=== PATIENT | male | born 1960 | race Caucasian/White ===

== ENCOUNTER 2020-06-14 18:00 | Inpatient (IN) | payer SELFPAY ==
[~2020-06-14 18:00] MED LIST: Fentanyl 100 MCG/2 ML VIAL ONE; Midazolam HCl 2 mg/2 ml Vial ONE; Ondansetron PF 4 MG/2 ML Vial ONE; PROPOFOL 200 MG/20 ML VIAL ONE
[2020-06-14] MEDS ORDERED: Acetaminophen 325 MG TAB PO PRN ×2 (18:03→22:45)
[2020-06-14] MEDS ORDERED: Ondansetron PF 4 MG/2 ML Vial SLOW IVP PRN (18:03)
[2020-06-14] MEDS ORDERED: traMADol HCl 50 MG TAB PO PRN (18:03)
[2020-06-14] MEDS ORDERED: Promethazine HCl 25 MG/ML VIAL IM PRN ×2 (18:03→20:02)
[2020-06-14] MEDS ORDERED: Meperidine HCl/PF 25 MG/ML VIAL IM PRN (18:06)
[2020-06-14] MEDS ORDERED: Lorazepam 2 MG/ML VIAL SLOW IVP PRN (18:10)
[2020-06-14] MEDS ORDERED: Pharmacy to Dose : VANC/ABX'S IVPB PRN (18:15)
[2020-06-14] MEDS ORDERED: TETANUS AND DIPHTHERIA TOX/PF 0.5 ML DISP.SYRIN IM SCH (18:15)
[2020-06-14] MEDS ORDERED: Tobramycin Sulfate 1.2 GM VIAL ONE (19:58)
[2020-06-14] MEDS ORDERED: Thrombin 5000 UNITS/5 ML VIAL ONE (20:00)
[2020-06-14] MEDS ORDERED: Ondansetron HCl/PF 4 MG/2 ML Vial IVP PRN (20:02)
[2020-06-14] MEDS ORDERED: Promethazine HCl 25 MG/ML VIAL SLOW IVP PRN (20:02)
[2020-06-14] MEDS ORDERED: Fentanyl 100 MCG/2 ML VIAL ONE (20:04)
[2020-06-14] MEDS ORDERED: Labetalol HCl 100 MG/20 ML VIAL ONE (20:22)
[2020-06-14] MEDS ORDERED: Vancomycin 1 GM in Premix Bag 1 BAG IVPB SCH (21:00)
[2020-06-14 21:32] VITALS: BMI 27.1
[2020-06-14] MEDS ORDERED: Labetalol HCl 100 MG/20 ML VIAL SLOW IVP PRN ×2 (21:35→22:08)
[2020-06-14] MEDS: Aspirin 81 mg Enteric Coated Tablet PO SCH (21:45)
[2020-06-14] MEDS: Famotidine/PF 20 mg/2ml Vial SLOW IVP SCH (21:45)
[2020-06-14] MEDS: HYDROcodone/Acetaminophen 5/325 mg Tablet PO PRN (21:45)
[2020-06-14] MEDS: Ketorolac Tromethamine 30 MG/ML VIAL IVP PRN (21:45)
[2020-06-14 22:01] LABS: ALT (SGPT) 32 U/L (8-55); AST (SGOT) 43 U/L (5-34); Albumin 3.2 g/dL (3.4-4.8); Alkaline Phosphatase 101 U/L (40-110); Bilirubin, Direct 1.1 mg/dL (0.1-0.3); Bilirubin, Total 1.9 mg/dL (0.2-1.2); Protein, Total 5.7 g/dL (5.8-8.1)
[2020-06-14] MEDS ORDERED: Dextrose 50% Abboject 50 ML SYRINGE SLOW IVP PRN (22:07)
[2020-06-14] MEDS ORDERED: Dextrose 5% in Water 1,000 ML IV PRN (22:07)
[2020-06-14] MEDS ORDERED: hydrALAZINE 20 MG/ML VIAL SLOW IVP PRN (22:08)
--- NOTE | 2020-06-14 22:08 | PDOC.HHP ---
Hospitalist HPI Finger abscess History of Present Illness: Patient is a 60 year old male with PMH HTN, DM who presents as transfer from [facility] for L finger abscess. Patient originally presented to PCP a few weeks ago after cat bit L hand, started on augmentin on 05/19, did not improve, became red and swollen, 4 days ago, discharge began from [address] [place] [address], patient presented to ED in [facility] today and hand surgeon here accepted patient Dr Coker, patient has history of HTN and DM, was previously on prinvil but has been lost to follow up and noncompliant, so essentially uncontrolled conditions. BPs so far with SBP in 160s, transferring facility labs significant for K 3.1, glucose 250, recieved vancomycin and cefepime there and transferred over here. here, patient had I&D of L hand today and admitted to floor, hospitalist service consulted for medical management. Allergies/Adverse Reactions: Allergy/AdvReac Type Severity Reaction Status Date / Time No Known Allergies Allergy Unverified 06/14/20 18:08 Comments: none Past History: PMHx: HTN, DM PSHx: no relevant surgical history FHx: no relevant family history Social: drinks 4 drinks/day, no hisotry of withdrawal physical symptoms, smokes 15 cigarettes a day Hospitalist HPI ROS Constitutional: reports: fever, chills. denies: sweats, weakness, malaise, other Eyes: denies: pain, vision change, conjunctivae inflammation, eyelid inflammation, redness, other ENT: denies: ear pain, ear discharge, nose pain, nose discharge, nose congestion, mouth pain, mouth swelling, throat pain, throat swelling, other Respiratory: denies: cough, dry, shortness of breath, hemoptysis, SOB with excertion, pleuritic pain, sputum, wheezing, other Cardiovascular: denies: chest pain, palpitations, orthopnea, paroxysmal noc. dyspnea, edema, light headedness, other Gastrointestinal: denies: nausea, vomiting, abdominal pain, diarrhea, constipation, melena, hematochezia, other Genitourinary: denies: dysuria, frequency, incontinence, hematuria, retention, other Musculoskeletal: reports: hand pain Skin: reports: rash, lesions Neurological: denies: weakness, numbness, incoordination, change in speech, confusion, seizures, other All other systems reviewed; all pertinent +/- noted in HPI/Subj Hospitalist Exam Vitals: Weight Weight 206 lb 2 oz 152/105 bp, pulse 89, rr 18, t 98.6, o2 sat 97 General Appearance: NAD, awake alert Eye: PERRL, anicteric sclera ENT: normocephalic atraumatic, no oropharyngeal lesions, moist mucosa Neck: supple, symmetric, no JVD, no thyromegaly, no lymphadenopathy, no carotid bruit Heart: RRR, no murmur, no gallops, no rubs, normal peripheral pulses Respiratory: CTAB, no wheezes, no rales, no ronchi, normal chest expansion, no tachypnea, normal percussion Gastrointestinal: soft, non-tender, non-distended, normal bowel sounds, no palpable masses, no hepatomegaly, no splenomegaly, no bruit Extremities - other findings: L hand surgical dressing, visible fingers pink and warm Skin: normal turgor, no lesions, no rashes Neurological: cranial nerve grossly intact, normal sensation to touch, no weakness, no focal deficits, no new deficit Musculoskeletal: normal tone, normal strength, no muscle wasting Psychiatric: normal affect, normal behavior, A&O x 3 Hospitalist Results Lab results: Laboratory Last Values Total Bilirubin 1.9 mg/dL (0.2-1.2) H 06/14/20 21:25 Direct Bilirubin 1.1 mg/dL (0.1-0.3) H 06/14/20 21:25 AST 43 U/L (5-34) H 06/14/20 21:25 ALT 32 U/L (8-55) 06/14/20 21:25 Alkaline Phosphatase 101 U/L (40-110) 06/14/20 21:25 Serum Total Protein 5.7 g/dL (5.8-8.1) L 06/14/20 21:25 Albumin 3.2 g/dL (3.4-4.8) L 06/14/20 21:25 Hospitalist H&P A/P Plan: Patient is a 60 year old male with PMH HTN, DM who presents as transfer from [facility] for L finger abscess. # L finger abscess - s/p I&D 06/[address] Coker - monitor on flood - consult vanc/unasyn - follow up blood/wound cultures - got tetanus booster # HTN - uncontrolled, noncompliant, does not see doctors - monitor on floor - PRN medications in place - start norvasc # DM - noncompliant, does not see doctor for this - SSI - A1C # hypokalemia - electrolyte replacement protocol, trend BMP # DVT ppx - per primary # GI ppx - pepcid full code
[2020-06-14] MEDS: Multivitamins, Adult 10 ML, Folic Acid 1 MG, Thiamine HCl 100 MG in Dextrose 5 %-0.45 %... IV SCH (22:15)
[2020-06-14] MEDS ORDERED: Electrolyte Replacement Protocol 1 EACH FS SCH (22:45)
[2020-06-14] MEDS ORDERED: Ondansetron PF 4 MG/2 ML Vial IVP PRN (22:45)
[2020-06-14] MEDS: Sodium Chloride 0.9% 1,000 ML IV SCH (23:21)
[2020-06-14] MEDS: Sodium Chloride 0.9% 100 ML IV SCH ×2 (23:58→23:59)
[2020-06-15] MEDS: Ampicillin/Sulbactam 3 GM in Sodium Chloride 0.9% 100 ML IVPB SCH ×4 (00:22→17:44)
[2020-06-15] MEDS: Vancomycin 1.5 GRAM/300 ML BAG 1.5 GM in Premix Bag 1 BAG IVPB SCH ×3 (00:36→16:19)
[2020-06-15] MEDS: HYDROcodone/Acetaminophen 5/325 mg Tablet PO PRN ×4 (05:32→21:14)
[2020-06-15 05:51] LABS: #Eosinphils 0.1 thou/uL (0.0-0.7); #Lymphocytes 1.7 thou/uL (1.20-3.40); #Monocytes 0.6 thou/uL (0.11-0.59); #Neutrophils 4.2 thou/uL (1.40-6.50); %Basophils 0.6 % (0.0-1.0); %Eosinophils 1.7 % (0.0-10.0); %Lymphocytes 26.1 % (21.0-51.0); %Monocytes 8.7 % (0.0-10.0); %Neutrophils 62.9 % (42.0-75.0); Hemoglobin 13.3 g/dL (14.0-18.0); Mean Corpuscular HGB CONC 34.9 g/dL (32.0-36.0); Mean Corpuscular Hemoglobin 36.3 pg (27.0-31.0); Mean Platelet Volume 8.9 fL (7.4-10.4); Platelet Count 139 thou/uL (130-400); Red Blood Cell (RBC) Count 3.68 mill/uL (4.70-6.10); White Blood Cell (WBC) Count 6.6 thou/uL (4.8-10.8)
[2020-06-15 06:12] LABS: ALT (SGPT) 28 U/L (8-55); AST (SGOT) 39 U/L (5-34); Albumin 2.9 g/dL (3.4-4.8); Alkaline Phosphatase 81 U/L (40-110); Anion Gap 12 mmol/L (10-20); BUN (Urea Nitrogen) 4 mg/dL (8.4-25.7); Bilirubin, Total 1.9 mg/dL (0.2-1.2); Calc. Creatinine Clearance 143 mL/min (70-130); Calcium 7.3 mg/dL (7.8-10.44); Carbon Dioxide 23 mmol/L (23-31); Chloride 103 mmol/L (98-107); Glucose 173 mg/dL (80-115); Magnesium 1.3 mg/dL (1.6-2.6); Potassium 3.1 mmol/L (3.5-5.1); Protein, Total 5.1 g/dL (5.8-8.1); Sodium 135 mmol/L (136-145)
[2020-06-15] MEDS: HumaLOG 300 UNITS/3 ML VIAL SC PRN ×3 (06:35→21:16)
--- NOTE | 2020-06-15 07:48 | OP ---
DATE OF PROCEDURE: 06/14/2020 PREOPERATIVE DIAGNOSES: 1. Left ring finger metacarpophalangeal joint abscess secondary to cat bite. 2. Tendon sheath abscess secondary to cat bite, left ring finger extensor. 3. Possible osteomyelitis of left ring finger metacarpal head. FINDINGS: 1. Left ring finger metacarpal head love 5 mm grossly infected osteomyelitis cavity, almost 4 mm deep, subchondral to the metacarpal head MCP joint. 2. Tendon sheath abscess. 3. Intra-articular ring finger, left metacarpophalangeal joint abscess. PROCEDURES PERFORMED: 1. Debridement of wound, which was a 3 mm cavity draining serosanguineous and mucopurulent material. 2. Debridement of material associated with the joint, left ring finger. 3. Left ring finger radical extensor tenosynovectomy. 4. Excision of bone cortex, left ring finger for gross osteomyelitis and mucopurulence. 5. Application of antibiotic beads, tobramycin powder. CULTURES: Yes, abscess x2 and then culture of the bone from the resection of the metacarpal head cavity and then finally specimen of the same bone, metacarpal head; all from the left ring finger. TOURNIQUET TIME: 18 minutes. ESTIMATED BLOOD LOSS: 20 mL. FINDINGS: Gross purulence at all sites with a total of approximately 1 tablespoon of purulence. Also after debridement, the metacarpal head cavity became 1 cm in length, approximately 8 mm in width, and approximately 5 mm in depth before we got to all bone without gross evidence of infection. INDICATIONS FOR PROCEDURE: Patient reports having a cat bite almost 2 months ago from his own home domestic cat. He reported progressive pain, swelling, inability to extend his finger and marked pain with attempt at passive extension and great drainage and mucopurulence despite antibiotics, reported to hospital today. DESCRIPTION OF PROCEDURE: After successful general LMA technique, the limb was prepped and draped. We then outlined a zigzag incision centered on what was a 3 mm puncture wound and obvious mucopurulence erythema over a 2.5 cm area beginning 5 mm distal to the metacarpophalangeal joint dorsally and then coursing almost 2 cm proximal. It was also in a rectangular shape, approximately 5 mm wide. We entered this incision, used an 11 blade knife to core out the actual area of the puncture wound and mucopurulence escaped. It was seen in all places. This included coating the bone, inside the joint where most of the joint dorsal capsule was gone. There was a bite wound through the extensor mechanism into the metacarpal head with gross purulence escaping from all sites. In order to resolve the purulence, we had to debride all the subcutaneous tissue widely with a tenotomy scissor, [place] blade, 11 blade knife, curette. This was done to debride the dermis and epidermis. To debride the deep next layer, we had to do a radical extensor tenosynovectomy and we saw through the extensor tendon, there was now complete defect and with debridement, it was approximately 3 mm wide. The patient then had the joint capsule which was almost completely gone, opened to the level of 1 cm distal to the base of the proximal phalanx and there was no soft bone at the base of proximal phalanx, but there was mucopurulence in the recess of the joint requiring debridement with a curette and tenotomy scissors. Once this was done, we then moved proximally and debrided the fat in the interspaces between the ring finger and the middle finger and ring finger and small finger metacarpals. There was mild purulence here. Once we had reached the area where it was only healthy tissue, we then finished our debridement and began irrigating two 3 L bags with normal saline inside, Pulsavac technique with antibiotics. Once this was done, we deflated the tourniquet and obtained hemostasis. We had saved cultures from the abscess cavity in the joint, then debrided abscess cavity, the half of the material from the bone cortex excision, and the other half of the bone cortex excision went to the pathology lab as specimen to rule out osteomyelitis from a clinical pathological standpoint. We initially considered using a white VAC sponge, but because of availability, had to use antibiotic beads with tobramycin powder inside standard cement without antibiotics, and we mixed the two powders together before we placed the liquid. 12 minutes later, we began to form them in 3 to 4 mm diameter antibiotic beads and we placed a separate bead of almost 8 mm x 6 mm in the defect created by the cavitation of the infection subcondylar metacarpal head. We obtained hemostasis. Tourniquet deflated before we began to make the antibiotic beads and then 20 minutes later, when they were hard and had been placed on a string, except for the one in the cavity, we them packed around the wound edges, wound centroid and then we had 16 beads on the string and one inside the cavitary lesion which was mobile. We placed a moist sponge x2 with normal saline-soaked gauze over the wound, dry 4x4s, ABD, and then we packed the web spaces in a bulky hand dressing type fashion. I then placed a palmar splint out to the level of the nailbed to support the ring finger, long, and middle. The patient left the operating room with a pink digit and no evidence of anesthetic or operative complication. Job ID: [id number]
[2020-06-15] MEDS ORDERED: Potassium Chloride 20 MEQ TAB PO SCH (08:15)
[2020-06-15] MEDS ORDERED: Magnesium Sulfate 4 GM in Sodium Chloride 0.9% 250 ML 250 ML IVPB SCH (08:15)
[2020-06-15] MEDS: Famotidine 20 MG TAB PO SCH ×2 (08:53→21:08)
[2020-06-15] MEDS: Aspirin 81 mg Enteric Coated Tablet PO SCH ×2 (08:53→21:08)
[2020-06-15] MEDS: Amlodipine 5 MG TAB PO SCH (08:54)
[2020-06-15] MEDS: Famotidine/PF 20 mg/2ml Vial SLOW IVP SCH ×2 (08:58→21:08)
[2020-06-15] MEDS: Sodium Chloride 0.9% 1,000 ML IV SCH ×2 (10:39→18:14)
--- NOTE | 2020-06-15 13:54 | PDOC.HOSPP ---
- Subjective Encounter Date: 06/15/20 Encounter Time: 13:49 Subjective: pain in L hand. no fever, chills - Objective Vital Signs & Weight: Vital Signs (12 hours) Temp Pulse Resp BP Pulse Ox 06/15/20 11:00 97.5 F L 80 16 133/83 95 06/15/20 08:54 71 06/15/20 07:25 97.5 F L 71 16 156/91 H 93 L 06/15/20 03:29 98 F 85 16 121/62 92 L Weight Weight 206 lb 2 oz I&O: 06/14/20 06/15/20 06/16/20 06:59 06:59 06:59 Intake Total 2315 Balance 2315 Result Diagrams: 06/15/20 05:17 06/15/20 05:17 Additional Labs: Accuchecks 06/15/20 06/15/20 11:05 03:34 POC Glucose 196 H 177 H Hospitalist ROS - Medication Medications: Active Medications Generic Name Dose Route Start Last Admin Trade Name Freq PRN Reason Stop Dose Admin Hydrocodone Bitart/Acetaminophen 2 tab 06/14/20 18:03 06/15/20 08:54 Hydrocodone/Acetaminophen 5/325 Mg Tablet PO 2 tab Q4H PRN Administration Severe Pain (7-10) Amlodipine Besylate 5 mg 06/15/20 09:00 06/15/20 08:54 Amlodipine 5 Mg Tab PO 5 mg DAILY MIGUELANGEL Administration Aspirin 81 mg 06/14/20 21:00 06/15/20 08:53 Aspirin 81 Mg Enteric Coated Tablet PO 81 mg BID MIGUELANGEL Administration Famotidine 20 mg 06/14/20 21:00 06/15/20 08:58 Famotidine/Pf 20 Mg/2ml Vial SLOW IVP 06/17/20 23:59 Not Given BID MIGUELANGEL Famotidine 20 mg 06/15/20 09:00 06/15/20 08:53 Famotidine 20 Mg Tab PO 20 mg BID MIGUELANGEL Administration Multivitamins 10 ml/ Folic 1,011.2 mls @ 100 mls/hr 06/14/20 20:00 06/14/20 22:15 Acid 1 mg/ Thiamine HCl 100 mg IV 06/17/20 23:59 1,011.2 mls / Dextrose/Sodium Chloride Q24HR MIGUELANGEL Administration Sodium Chloride 1,000 mls @ 100 mls/hr 06/14/20 21:30 06/15/20 10:39 Normal Saline 0.9% IV Not Given .Q10H MIGUELANGEL Ampicillin Sodium/Sulbactam 100 mls @ 200 mls/hr 06/14/20 23:59 06/15/20 11:21 Sodium 3 gm/ Sodium Chloride IVPB 100 mls Q6HR MIGUELANGEL Administration Vancomycin HCl 1.5 gm/ Device 300 mls @ 200 mls/hr 06/15/20 01:00 06/15/20 08:53 IVPB 06/17/20 23:59 300 mls 0100,0900,1700 MIGUELANGEL Administration Insulin Human Lispro 0 units 06/14/20 22:07 06/15/20 11:24 Humalog 300 Units/3 Ml Vial SC 2 unit .MODERATE SLIDING SC PRN Administration Moderate Correctional Scale Ketorolac Tromethamine 30 mg 06/14/20 18:06 06/14/20 21:45 Ketorolac Tromethamine 30 Mg/Ml Vial IVP 06/19/20 18:07 30 mg Q6H PRN Administration Pain Hospitalist Exam Vitals: Vital Signs (12 hours) Temp Pulse Resp BP Pulse Ox 06/15/20 11:00 97.5 F L 80 16 133/83 95 06/15/20 08:54 71 06/15/20 07:25 97.5 F L 71 16 156/91 H 93 L 06/15/20 03:29 98 F 85 16 121/62 92 L Weight Weight 206 lb 2 oz General Appearance: awake alert Neck: no JVD Heart: RRR, no murmur Respiratory: CTAB Gastrointestinal: soft, non-distended, normal bowel sounds Extremities: no edema Extremities - other findings: left hand in bulky bandage Hosp A/P (1) Cellulitis and abscess of hand Code(s): L03.119 - CELLULITIS OF UNSPECIFIED PART OF LIMB; L02.519 - CUTANEOUS ABSCESS OF UNSPECIFIED HAND Status: Acute (2) Osteomyelitis Code(s): M86.9 - OSTEOMYELITIS, UNSPECIFIED Status: Acute Qualifiers: Osteomyelitis type: unspecified type Osteomyelitis location: hand Laterality: left Qualified Code(s): M86.9 - Osteomyelitis, unspecified (3) Cat bite of hand Code(s): S61.459A - OPEN BITE OF UNSPECIFIED HAND, INITIAL ENCOUNTER; W55.01XA - BITTEN BY CAT, INITIAL ENCOUNTER Status: Chronic Qualifiers: Encounter type: initial encounter Laterality: left Qualified Code(s): S61.452A - Open bite of left hand, initial encounter; W55.01XA - Bitten by cat, initial encounter - Plan post op I&D, bone resection for possible osteomyelitis cont wound care await culture reports cont current iv anagesic cint iv antibx
[2020-06-15] MEDS: Morphine 4 MG/ML VIAL SLOW IVP PRN (17:44)
[2020-06-15] MEDS: Multivitamins, Adult 10 ML, Folic Acid 1 MG, Thiamine HCl 100 MG in Dextrose 5 %-0.45 %... IV SCH (21:23)
[2020-06-16] MEDS: Ampicillin/Sulbactam 3 GM in Sodium Chloride 0.9% 100 ML IVPB SCH ×5 (00:19→23:50)
[2020-06-16 01:15] LABS: Vancomycin, Trough 15.1 ug/mL
[2020-06-16] MEDS: Vancomycin 1.5 GRAM/300 ML BAG 1.5 GM in Premix Bag 1 BAG IVPB SCH ×3 (01:41→18:19)
[2020-06-16] MEDS: Sodium Chloride 0.9% 1,000 ML IV SCH ×2 (04:02→14:57)
[2020-06-16] MEDS: Ketorolac Tromethamine 30 MG/ML VIAL IVP PRN (04:11)
[2020-06-16] MEDS ORDERED: Magnesium 2 GM/50 ML 2 GM in Premix Bag 1 BAG IVPB SCH (04:30)
[2020-06-16] MEDS ORDERED: Potassium Chloride 20 MEQ TAB PO SCH (04:30)
[2020-06-16] MEDS: HYDROcodone/Acetaminophen 5/325 mg Tablet PO PRN ×3 (05:31→20:04)
[2020-06-16] MEDS: HumaLOG 300 UNITS/3 ML VIAL SC PRN ×2 (06:01→20:54)
[2020-06-16] MEDS: Famotidine 20 MG TAB PO SCH ×2 (08:45→20:07)
[2020-06-16] MEDS: Amlodipine 5 MG TAB PO SCH (08:46)
[2020-06-16] MEDS: Morphine 4 MG/ML VIAL SLOW IVP PRN (08:46)
[2020-06-16] MEDS: Aspirin 81 mg Enteric Coated Tablet PO SCH ×2 (08:46→20:07)
[2020-06-16] MEDS: Famotidine/PF 20 mg/2ml Vial SLOW IVP SCH ×2 (09:59→21:00)
--- NOTE | 2020-06-16 16:46 | PDOC.HOSPP ---
- Subjective Encounter Date: 06/16/20 Encounter Time: 16:44 Subjective: Patient seen and evaluated. 60-year-old who was admitted to the hospital following a cat bite to his left hand. This unfortunately appears to have became severely infected now causing osteomyelitis. He underwent operative intervention. He is currently on IV antibiotics. Cultures however has remained negative to date. He likely is going to need long-term antibiotics and I will check with the primary admitting service. - Objective Vital Signs & Weight: Vital Signs (12 hours) Temp Pulse Resp BP Pulse Ox 06/16/20 15:57 97.6 F 72 18 168/88 H 98 06/16/20 11:10 97.5 F L 72 18 143/78 H 98 06/16/20 08:46 74 06/16/20 08:03 97.7 F 66 18 154/87 H 90 L Weight Admit Weight 206 lb 2 oz Weight 206 lb 2 oz I&O: 06/15/20 06/16/20 06/17/20 06:59 06:59 06:59 Intake Total 2315 2400 Output Total 1000 Balance 2315 1400 Result Diagrams: 06/17/20 04:41 06/17/20 06:29 Additional Labs: Accuchecks 06/16/20 06/16/20 06/16/20 16:00 11:12 05:58 POC Glucose 162 H 184 H 182 H 06/15/20 21:03 POC Glucose 174 H Radiology Reviewed by me: Yes EKG Reviewed by me: Yes Hospitalist ROS - Review of Systems Gastrointestinal: reports: nausea, vomiting - Medication Medications: Active Medications Generic Name Dose Route Start Last Admin Trade Name Freq PRN Reason Stop Dose Admin Hydrocodone Bitart/Acetaminophen 2 tab 06/14/20 18:03 06/16/20 13:03 Hydrocodone/Acetaminophen 5/325 Mg Tablet PO 2 tab Q4H PRN Administration Severe Pain (7-10) Amlodipine Besylate 5 mg 06/15/20 09:00 06/16/20 08:46 Amlodipine 5 Mg Tab PO 5 mg DAILY MIGUELANGEL Administration Aspirin 81 mg 06/14/20 21:00 06/16/20 08:46 Aspirin 81 Mg Enteric Coated Tablet PO 81 mg BID MIGUELANGEL Administration Famotidine 20 mg 06/14/20 21:00 06/16/20 09:59 Famotidine/Pf 20 Mg/2ml Vial SLOW IVP 06/17/20 23:59 Not Given BID MIGUELANGEL Famotidine 20 mg 06/15/20 09:00 06/16/20 08:45 Famotidine 20 Mg Tab PO 20 mg BID MIGUELANGEL Administration Multivitamins 10 ml/ Folic 1,011.2 mls @ 100 mls/hr 06/14/20 20:00 06/15/20 21:23 Acid 1 mg/ Thiamine HCl 100 mg IV 06/17/20 23:59 1,011.2 mls / Dextrose/Sodium Chloride Q24HR MIGUELANGEL Administration Sodium Chloride 1,000 mls @ 100 mls/hr 06/14/20 21:30 06/16/20 14:57 Normal Saline 0.9% IV Not Given .Q10H MIGUELANGEL Ampicillin Sodium/Sulbactam 100 mls @ 200 mls/hr 06/14/20 23:59 06/16/20 13:03 Sodium 3 gm/ Sodium Chloride IVPB 100 mls Q6HR MIGUELANGEL Administration Vancomycin HCl 1.5 gm/ Device 300 mls @ 200 mls/hr 06/15/20 01:00 06/16/20 08:47 IVPB 06/17/20 23:59 300 mls 0100,0900,1700 MIGUELANGEL Administration Insulin Human Lispro 0 units 06/14/20 22:07 06/16/20 06:01 Humalog 300 Units/3 Ml Vial SC 2 unit .MODERATE SLIDING SC PRN Administration Moderate Correctional Scale Ketorolac Tromethamine 30 mg 06/14/20 18:06 06/16/20 04:11 Ketorolac Tromethamine 30 Mg/Ml Vial IVP 06/19/20 18:07 30 mg Q6H PRN Administration Pain Morphine Sulfate 4 mg 06/14/20 18:03 06/16/20 08:46 Morphine 4 Mg/Ml Vial SLOW IVP 4 mg Q2H PRN Administration Severe Pain (7-10) Hospitalist Exam Vitals: Vital Signs (12 hours) Temp Pulse Resp BP Pulse Ox 06/16/20 15:57 97.6 F 72 18 168/88 H 98 06/16/20 11:10 97.5 F L 72 18 143/78 H 98 06/16/20 08:46 74 06/16/20 08:03 97.7 F 66 18 154/87 H 90 L Weight Admit Weight 206 lb 2 oz Weight 206 lb 2 oz General Appearance: NAD, awake alert Eye: PERRL, anicteric sclera ENT: normocephalic atraumatic, no oropharyngeal lesions Neck: supple, symmetric, no JVD Heart: RRR, no murmur, no gallops, no rubs Gastrointestinal: soft, non-tender, non-distended, normal bowel sounds Neurological: cranial nerve grossly intact, normal sensation to touch Psychiatric: normal affect, normal behavior, A&O x 3 Hosp A/P (1) Cellulitis and abscess of hand Code(s): L03.119 - CELLULITIS OF UNSPECIFIED PART OF LIMB; L02.519 - CUTANEOUS ABSCESS OF UNSPECIFIED HAND Status: Acute Plan: Patient is status post operative debridement. (2) Osteomyelitis Code(s): M86.9 - OSTEOMYELITIS, UNSPECIFIED Status: Acute Qualifiers: Osteomyelitis type: unspecified type Osteomyelitis location: hand Laterality: left Qualified Code(s): M86.9 - Osteomyelitis, unspecified Plan: Status post debridement. Continue antibiotics. (3) Cat bite of hand Code(s): S61.459A - OPEN BITE OF UNSPECIFIED HAND, INITIAL ENCOUNTER; W55.01XA - BITTEN BY CAT, INITIAL ENCOUNTER Status: Chronic Qualifiers: Encounter type: initial encounter Laterality: left Qualified Code(s): S61.452A - Open bite of left hand, initial encounter; W55.01XA - Bitten by cat, initial encounter (4) Diabetes type 2, uncontrolled Code(s): E11.65 - TYPE 2 DIABETES MELLITUS WITH HYPERGLYCEMIA Status: Acute Qualifiers: Glycemic state: with hyperglycemia Qualified Code(s): E11.65 - Type 2 diabetes mellitus with hyperglycemia - Plan old records reviewed/req, PT/OT, incentive spirometry, out of bed/ambulate We will discuss with the primary service about getting ID on board. I suspect he is going to need long-term antibiotics for this osteomyelitis.
[2020-06-16] MEDS: Multivitamins, Adult 10 ML, Folic Acid 1 MG, Thiamine HCl 100 MG in Dextrose 5 %-0.45 %... IV SCH (20:08)
[2020-06-17] MEDS: Vancomycin 1.5 GRAM/300 ML BAG 1.5 GM in Premix Bag 1 BAG IVPB SCH ×3 (00:50→18:01)
[2020-06-17] MEDS: Sodium Chloride 0.9% 1,000 ML IV SCH ×3 (01:03→22:21)
[2020-06-17 05:20] LABS: #Basophils 0.1 thou/uL (0.0-0.2); #Eosinphils 0.1 thou/uL (0.0-0.7); #Lymphocytes 1.9 thou/uL (1.20-3.40); #Monocytes 0.7 thou/uL (0.11-0.59); #Neutrophils 5.1 thou/uL (1.40-6.50); %Eosinophils 1.2 % (0.0-10.0); %Lymphocytes 24.7 % (21.0-51.0); %Monocytes 8.3 % (0.0-10.0); %Neutrophils 64.8 % (42.0-75.0); Hemoglobin 15.7 g/dL (14.0-18.0); Mean Corpuscular HGB CONC 33.4 g/dL (32.0-36.0); Mean Corpuscular Hemoglobin 34.9 pg (27.0-31.0); Mean Platelet Volume 8.7 fL (7.4-10.4); Platelet Count 167 thou/uL (130-400); RBC Distribution Width 12.1 % (11.5-14.5); White Blood Cell (WBC) Count 7.9 thou/uL (4.8-10.8)
[2020-06-17] MEDS: Ketorolac Tromethamine 30 MG/ML VIAL IVP PRN ×2 (06:26→11:15)
[2020-06-17] MEDS: Ampicillin/Sulbactam 3 GM in Sodium Chloride 0.9% 100 ML IVPB SCH ×3 (06:32→18:02)
[2020-06-17 07:00] LABS: Chloride 103 mmol/L (98-107); Potassium 3.3 mmol/L (3.5-5.1); Sodium 133 mmol/L (136-145)
[2020-06-17 07:01] LABS: Calcium 8.3 mg/dL (7.8-10.44); Glucose 159 mg/dL (80-115)
[2020-06-17 07:03] LABS: Anion Gap 14 mmol/L (10-20); Carbon Dioxide 19 mmol/L (23-31)
[2020-06-17 07:05] LABS: Calc. Creatinine Clearance 158 mL/min (70-130)
[2020-06-17 07:06] LABS: BUN (Urea Nitrogen) 4 mg/dL (8.4-25.7)
[2020-06-17] MEDS ORDERED: Potassium Chloride 20 MEQ TAB PO SCH (07:15)
[2020-06-17] MEDS: Aspirin 81 mg Enteric Coated Tablet PO SCH ×2 (08:09→21:48)
[2020-06-17] MEDS: Famotidine 20 MG TAB PO SCH ×2 (08:09→21:48)
[2020-06-17 08:13] LABS: Vancomycin, Trough 18.6 ug/mL
[2020-06-17] MEDS: Famotidine/PF 20 mg/2ml Vial SLOW IVP SCH ×2 (08:19→22:22)
[2020-06-17] MEDS: Amlodipine 5 MG TAB PO SCH (08:19)
[2020-06-17] MEDS: HYDROcodone/Acetaminophen 5/325 mg Tablet PO PRN (11:15)
[2020-06-17] MEDS ORDERED: Ondansetron PF 4 MG/2 ML Vial ONE (13:54)
[2020-06-17] MEDS ORDERED: PROPOFOL 200 MG/20 ML VIAL ONE (13:54)
[2020-06-17] MEDS ORDERED: Dexamethasone 20 MG/5 ML VIAL ONE (13:54)
[2020-06-17] MEDS ORDERED: Ketorolac Tromethamine 30 MG/ML VIAL ONE (13:54)
[2020-06-17] MEDS ORDERED: Lidocaine 1% PF 5 ML VIAL ONE (13:54)
[2020-06-17] MEDS ORDERED: ePHEDrine 50 MG/ML VIAL ONE (13:54)
--- NOTE | 2020-06-17 15:20 | PDOC.HOSPP ---
- Subjective Encounter Date: 06/17/20 Encounter Time: 15:18 Subjective: Mr Cage is seen and examined at bedside. He has osteomyelitis of the left hand.Did extensive I and D. Will likely need prison antibiotics. - Objective Vital Signs & Weight: Vital Signs (12 hours) Temp Pulse Resp BP BP Pulse Ox 06/17/20 11:38 97.4 F L 74 16 162/92 H 97 06/17/20 08:31 97.8 F 72 16 188/105 H 98 06/17/20 05:06 166/96 H 06/17/20 04:28 64 185/98 H 06/17/20 03:54 98.1 F 64 18 185/98 H 97 Weight Admit Weight 206 lb 2 oz Weight 206 lb 2 oz I&O: 06/16/20 06/17/20 06/18/20 06:59 06:59 06:59 Intake Total 2400 1000 Output Total 1000 Balance 1400 1000 Result Diagrams: 06/17/20 04:41 06/17/20 06:29 Additional Labs: Accuchecks 06/17/20 06/16/20 06/16/20 06:47 20:43 16:00 POC Glucose 149 H 153 H 162 H Radiology Reviewed by me: Yes EKG Reviewed by me: Yes Hospitalist ROS - Review of Systems Skin: reports: rash Neurological: reports: weakness - Medication Medications: Active Medications Generic Name Dose Route Start Last Admin Trade Name Freq PRN Reason Stop Dose Admin Hydrocodone Bitart/Acetaminophen 2 tab 06/14/20 18:03 06/17/20 11:15 Hydrocodone/Acetaminophen 5/325 Mg Tablet PO 2 tab Q4H PRN Administration Severe Pain (7-10) Amlodipine Besylate 5 mg 06/15/20 09:00 06/17/20 08:19 Amlodipine 5 Mg Tab PO 5 mg DAILY MIGUELANGEL Administration Aspirin 81 mg 06/14/20 21:00 06/17/20 08:09 Aspirin 81 Mg Enteric Coated Tablet PO Not Given BID MIGUELANGEL Famotidine 20 mg 06/14/20 21:00 06/17/20 08:19 Famotidine/Pf 20 Mg/2ml Vial SLOW IVP 06/17/20 23:59 20 mg BID MIGUELANGEL Administration Famotidine 20 mg 06/15/20 09:00 06/17/20 08:09 Famotidine 20 Mg Tab PO Not Given BID MIGUELANGEL Hydralazine HCl 10 mg 06/14/20 22:08 06/17/20 04:28 Hydralazine 20 Mg/Ml Vial SLOW IVP 10 mg Q6H PRN Administration SBP GREATER THAN 160 Multivitamins 10 ml/ Folic 1,011.2 mls @ 100 mls/hr 06/14/20 20:00 06/16/20 20:08 Acid 1 mg/ Thiamine HCl 100 mg IV 06/17/20 23:59 1,011.2 mls / Dextrose/Sodium Chloride Q24HR MIGUELANGEL Administration Sodium Chloride 1,000 mls @ 100 mls/hr 06/14/20 21:30 06/17/20 08:24 Normal Saline 0.9% IV 1,000 mls .Q10H MIGUELANGEL Administration Ampicillin Sodium/Sulbactam 100 mls @ 200 mls/hr 06/14/20 23:59 06/17/20 11:16 Sodium 3 gm/ Sodium Chloride IVPB 100 mls Q6HR MIGUELANGEL Administration Vancomycin HCl 1.5 gm/ Device 300 mls @ 200 mls/hr 06/15/20 01:00 06/17/20 08:19 IVPB 06/17/20 23:59 300 mls 0100,0900,1700 MIGUELANGEL Administration Insulin Human Lispro 0 units 06/14/20 22:07 06/16/20 20:54 Humalog 300 Units/3 Ml Vial SC 2 unit .MODERATE SLIDING SC PRN Administration Moderate Correctional Scale Ketorolac Tromethamine 30 mg 06/14/20 18:06 06/17/20 11:15 Ketorolac Tromethamine 30 Mg/Ml Vial IVP 06/19/20 18:07 30 mg Q6H PRN Administration Pain Morphine Sulfate 4 mg 06/14/20 18:03 06/16/20 08:46 Morphine 4 Mg/Ml Vial SLOW IVP 4 mg Q2H PRN Administration Severe Pain (7-10) Hospitalist Exam Vitals: Vital Signs (12 hours) Temp Pulse Resp BP BP Pulse Ox 06/17/20 11:38 97.4 F L 74 16 162/92 H 97 06/17/20 08:31 97.8 F 72 16 188/105 H 98 06/17/20 05:06 166/96 H 06/17/20 04:28 64 185/98 H 06/17/20 03:54 98.1 F 64 18 185/98 H 97 Weight Admit Weight 206 lb 2 oz Weight 206 lb 2 oz General Appearance: NAD Eye: PERRL ENT: normocephalic atraumatic, no oropharyngeal lesions Neck: supple, symmetric, no JVD Heart: RRR, no murmur Respiratory: CTAB, no wheezes, no rales Gastrointestinal: soft, non-tender Neurological: cranial nerve grossly intact Psychiatric: normal affect Hosp A/P (1) Cellulitis and abscess of hand Code(s): L03.119 - CELLULITIS OF UNSPECIFIED PART OF LIMB; L02.519 - CUTANEOUS ABSCESS OF UNSPECIFIED HAND Status: Acute (2) Osteomyelitis Code(s): M86.9 - OSTEOMYELITIS, UNSPECIFIED Status: Acute Qualifiers: Osteomyelitis type: unspecified type Osteomyelitis location: hand Laterality: left Qualified Code(s): M86.9 - Osteomyelitis, unspecified (3) Cat bite of hand Code(s): S61.459A - OPEN BITE OF UNSPECIFIED HAND, INITIAL ENCOUNTER; W55.01XA - BITTEN BY CAT, INITIAL ENCOUNTER Status: Chronic Qualifiers: Encounter type: initial encounter Laterality: left Qualified Code(s): S61.452A - Open bite of left hand, initial encounter; W55.01XA - Bitten by cat, initial encounter (4) Diabetes type 2, uncontrolled Code(s): E11.65 - TYPE 2 DIABETES MELLITUS WITH HYPERGLYCEMIA Status: Acute Qualifiers: Glycemic state: with hyperglycemia Qualified Code(s): E11.65 - Type 2 diabetes mellitus with hyperglycemia - Plan old records reviewed/req We will discuss with the primary service about getting ID on board. I suspect he is going to need long-term antibiotics for this osteomyelitis.
[2020-06-17] MEDS ORDERED: Dexmedetomidine 200 MCG/2 ML VIAL ONE (16:03)
[2020-06-17] MEDS ORDERED: HYDROmorphone 0.5 MG/0.5 ML SYRINGE ONE (18:02)
[2020-06-17] MEDS ORDERED: Sodium Chloride 0.9% 10 ML ONE (18:12)
[2020-06-17] MEDS ORDERED: Bacitracin Zinc Ointment 30 gm TUBE ONE (18:12)
[2020-06-17] MEDS ORDERED: Bupivacaine PF 0.5% 30 ML VIAL ONE (18:12)
[2020-06-17] MEDS ORDERED: Tobramycin Sulfate 1.2 GM VIAL ONE (18:12)
[2020-06-17] MEDS ORDERED: Betamet Acet/Betamet Na Ph 30 MG/5 ML VIAL ONE (18:12)
[2020-06-17] MEDS ORDERED: Promethazine HCl 25 MG/ML VIAL IM PRN (20:08)
[2020-06-17] MEDS ORDERED: Promethazine HCl 25 MG/ML VIAL SLOW IVP PRN (20:08)
[2020-06-17] MEDS ORDERED: Ondansetron HCl/PF 4 MG/2 ML Vial IVP PRN (20:08)
[2020-06-17] MEDS ORDERED: Lorazepam 2 MG/ML VIAL SLOW IVP PRN (23:28)
[2020-06-17] MEDS ORDERED: Lorazepam 2 MG/ML VIAL SLOW IVP SCH ×2 (23:30→23:45)
[2020-06-17] MEDS ORDERED: Thiamine HCl 200 MG/2 ML VIAL IM SCH (23:45)
[2020-06-17] MEDS: Multivitamins, Adult 10 ML, Folic Acid 1 MG, Thiamine HCl 100 MG in Dextrose 5 %-0.45 %... IV SCH (23:45)
[2020-06-18] MEDS: Nicotine 14 MG PATCH TD SCH (00:02)
[2020-06-18] MEDS: HumaLOG 300 UNITS/3 ML VIAL SC PRN ×3 (05:50→17:22)
[2020-06-18] MEDS: Ampicillin/Sulbactam 3 GM in Sodium Chloride 0.9% 100 ML IVPB SCH ×5 (06:48→22:53)
[2020-06-18] MEDS: Sodium Chloride 0.9% 1,000 ML IV SCH ×2 (07:32→16:13)
[2020-06-18] MEDS: Aspirin 81 mg Enteric Coated Tablet PO SCH ×2 (08:34→20:33)
[2020-06-18] MEDS: Famotidine 20 MG TAB PO SCH ×2 (08:34→20:33)
[2020-06-18] MEDS: Folic Acid 1 MG TAB PO SCH (08:34)
[2020-06-18] MEDS: Thiamine 100 MG TAB PO SCH (08:34)
[2020-06-18] MEDS: Multivitamin W/ Minerals 1 TAB PO SCH (08:34)
[2020-06-18] MEDS: Magnesium Oxide 400 MG TAB PO SCH (08:34)
[2020-06-18] MEDS: Amlodipine 5 MG TAB PO SCH (08:34)
--- NOTE | 2020-06-18 15:30 | PDOC.HOSPP ---
- Subjective Encounter Date: 06/18/20 Encounter Time: 15:28 Subjective: Patient was seen today at the bedside.. He has no other issues at this time. Medicine service continues to be available if needed. - Objective Vital Signs & Weight: Vital Signs (12 hours) Temp Pulse Resp BP Pulse Ox 06/18/20 11:34 98.4 F 106 H 18 186/100 H 97 06/18/20 07:39 97.7 F 125 H 18 132/84 97 Weight Admit Weight 206 lb 2 oz Weight 206 lb 2 oz I&O: 06/17/20 06/18/20 06/19/20 06:59 06:59 06:59 Intake Total 1000 1600 Balance 1000 1600 Result Diagrams: 06/17/20 04:41 06/17/20 06:29 Additional Labs: Accuchecks 06/18/20 06/18/20 06/17/20 11:36 05:44 21:49 POC Glucose 203 H 268 H 140 H 06/17/20 17:48 POC Glucose 98 Radiology Reviewed by me: Yes EKG Reviewed by me: Yes Hospitalist ROS - Review of Systems Gastrointestinal: reports: nausea - Medication Medications: Active Medications Generic Name Dose Route Start Last Admin Trade Name Freq PRN Reason Stop Dose Admin Hydrocodone Bitart/Acetaminophen 2 tab 06/14/20 18:03 06/17/20 11:15 Hydrocodone/Acetaminophen 5/325 Mg Tablet PO 2 tab Q4H PRN Administration Severe Pain (7-10) Amlodipine Besylate 5 mg 06/15/20 09:00 06/18/20 08:34 Amlodipine 5 Mg Tab PO 5 mg DAILY [facility]IGUELANGEL Administration Aspirin 81 mg 06/14/20 21:00 06/18/20 08:34 Aspirin 81 Mg Enteric Coated Tablet PO 81 mg BID MIGUELANGEL Administration Famotidine 20 mg 06/15/20 09:00 06/18/20 08:34 Famotidine 20 Mg Tab PO 20 mg BID MIGUELANGEL Administration Folic Acid 1 mg 06/18/20 09:00 06/18/20 08:34 Folic Acid 1 Mg Tab PO 1 mg DAILY [facility] Administration Hydralazine HCl 10 mg 06/14/20 22:08 06/17/20 04:28 Hydralazine 20 Mg/Ml Vial SLOW IVP 10 mg Q6H PRN Administration SBP GREATER THAN 160 Sodium Chloride 1,000 mls @ 100 mls/hr 06/14/20 21:30 06/18/20 07:32 Normal Saline 0.9% IV Not Given .Q10H [facility]IGUELANGEL Ampicillin Sodium/Sulbactam 100 mls @ 200 mls/hr 06/14/20 23:59 06/18/20 06:48 Sodium 3 gm/ Sodium Chloride IVPB 100 mls Q6HR [facility]IGUELANGEL Administration Insulin Human Lispro 0 units 06/14/20 22:07 06/18/20 12:03 Humalog 300 Units/3 Ml Vial SC 4 unit .MODERATE SLIDING SC PRN Administration Moderate Correctional Scale Iron/Minerals/Multivitamins 1 tab 06/18/20 09:00 06/18/20 08:34 Multivitamin W/ Minerals 1 Tab PO 1 tab DAILY [facility] Administration Ketorolac Tromethamine 30 mg 06/14/20 18:06 06/17/20 11:15 Ketorolac Tromethamine 30 Mg/Ml Vial IVP 06/19/20 18:07 30 mg Q6H PRN Administration Pain Lorazepam 1 mg 06/14/20 18:10 06/17/20 23:03 Lorazepam 2 Mg/Ml Vial SLOW IVP 1 mg Q6H PRN Administration Anxiety/Agitation Magnesium Oxide 400 mg 06/18/20 09:00 06/18/20 08:34 Magnesium Oxide 400 Mg Tab PO 400 mg DAILY [facility] Administration Morphine Sulfate 4 mg 06/14/20 18:03 06/16/20 08:46 Morphine 4 Mg/Ml Vial SLOW IVP 4 mg Q2H PRN Administration Severe Pain (7-10) Nicotine 14 mg 06/17/20 23:59 06/18/20 00:02 Nicotine 14 Mg Patch TD 14 mg 2359 [facility] Administration Thiamine HCl 100 mg 06/18/20 09:00 06/18/20 08:34 Thiamine 100 Mg Tab PO 100 mg DAILY [facility] Administration Hospitalist Exam Vitals: Vital Signs (12 hours) Temp Pulse Resp BP Pulse Ox 06/18/20 11:34 98.4 F 106 H 18 186/100 H 97 06/18/20 07:39 97.7 F 125 H 18 132/84 97 Weight Admit Weight 206 lb 2 oz Weight 206 lb 2 oz General Appearance: NAD, awake alert Eye: PERRL, anicteric sclera ENT: normocephalic atraumatic, no oropharyngeal lesions Neck: supple, symmetric, no JVD, no thyromegaly Heart: RRR, no murmur, no gallops Respiratory: CTAB, no wheezes, no rales Gastrointestinal: soft, non-tender, non-distended, normal bowel sounds Neurological: cranial nerve grossly intact, normal sensation to touch Psychiatric: normal affect, normal behavior, A&O x 3 Hosp A/P (1) Cellulitis and abscess of hand Code(s): L03.119 - CELLULITIS OF UNSPECIFIED PART OF LIMB; L02.519 - CUTANEOUS ABSCESS OF UNSPECIFIED HAND Status: Acute (2) Osteomyelitis Code(s): M86.9 - OSTEOMYELITIS, UNSPECIFIED Status: Acute Qualifiers: Osteomyelitis type: unspecified type Osteomyelitis location: hand Laterality: left Qualified Code(s): M86.9 - Osteomyelitis, unspecified (3) Cat bite of hand Code(s): S61.459A - OPEN BITE OF UNSPECIFIED HAND, INITIAL ENCOUNTER; W55.01XA - BITTEN BY CAT, INITIAL ENCOUNTER Status: Chronic Qualifiers: Encounter type: initial encounter Laterality: left Qualified Code(s): S61.452A - Open bite of left hand, initial encounter; W55.01XA - Bitten by cat, initial encounter (4) Diabetes type 2, uncontrolled Code(s): E11.65 - TYPE 2 DIABETES MELLITUS WITH HYPERGLYCEMIA Status: Acute Qualifiers: Glycemic state: with hyperglycemia Qualified Code(s): E11.65 - Type 2 diabetes mellitus with hyperglycemia - Plan We will discuss with the primary service about getting ID on board. I suspect he is going to need long-term antibiotics for this osteomyelitis. 06/18/2020. The patient is on Unasyn and vancomycin. This will be continued for now.
--- NOTE | 2020-06-18 17:29 | OP ---
DATE OF PROCEDURE: 06/17/2020 PREOPERATIVE DIAGNOSES: Left ring finger open wound 7 cm with extensor tendon laceration and bone defect; ring finger metacarpal head bone defect; tendon injury, small finger and ring finger. POSTOPERATIVE DIAGNOSES: Left ring finger open wound 7 cm with extensor tendon laceration and bone defect; ring finger metacarpal head bone defect; tendon injury, small finger and ring finger. PROCEDURES PERFORMED: 1. Removal of antibiotic beads with application of dissolvable antibiotic beads with tobramycin powder inside. 2. Debridement of subchondral bone, metacarpal head, ring finger. 3. Debridement of wound. 4. Repair of extensor tendon ring finger. 5. Repair of extensor tendon small finger. 6. 7 cm wound closure, multiple layers. INJECTABLE: 30 mL, 0.5% Marcaine. TOURNIQUET TIME: None. BLOOD LOSS: 10 mL. FINDINGS: No gross infection of skin, tendon, bone, or joint. INDICATIONS: Patient returned for now staged wound management after having a more than 6-week-old cat bite abscess with bone involvement osteomyelitis grossly. At this point, 2-1/2 days after the initial surgery, no cultures have grown any bacteria. He was previously treated with oral antibiotics before debridement. DESCRIPTION OF PROCEDURE: After successful general endotracheal anesthesia, the limb was prepped and draped. He had 20 mL of 0.5% Marcaine given before surgery and 10 given after the wound was closed. We then did a time-out, removed his antibiotic beads including 1 bead placed in the metacarpal head subcondylar defect. There was no gross infection. We debrided a small amount of the bone with a curette, [place] blade, tenotomy scissors, used tenotomy scissors and incision technique to debride the skin especially on the radial side and distal one-third approximately 2 mm until we had all nonerythematous skin. We then irrigated all areas to finish the excisional debridement down to and including the joint with 3 L Pulsavac with antibiotics inside . Then, we obtained hemostasis. We had begun mixture of dissolvable antibiotic bead as soon as the procedure started and we then realized the two repairs, nearly 90% laceration of the extensor tendon to the ring finger which we repaired with interrupted [id number] under excellent tension using 3-0 Prolene. The 4-0 Prolene was then used to repair the small finger extensor digitorum communis tendon laceration while the extensor digiti minimi was not violated. The repairs were excellent. We then did a rotational flap to close the skin because of the defect where the bite took place, after debridement. Before closing the skin, however, we allowed the beads to mature, placed them in the defect, then closed the skin with interrupted 3-0 nylon without undue tension. Bulky dressing was applied with a short-arm splint. Job ID: [id number]
[2020-06-18] MEDS: Clindamycin 150 MG CAP PO SCH (20:33)
[2020-06-18] MEDS: HYDROcodone/Acetaminophen 5/325 mg Tablet PO PRN (20:33)
[2020-06-18] MEDS: Rifampin 300 MG CAP PO SCH (20:34)
[2020-06-19] MEDS: Nicotine 14 MG PATCH TD SCH (00:42)
[2020-06-19] MEDS: Sodium Chloride 0.9% 1,000 ML IV SCH ×2 (00:47→15:37)
[2020-06-19] MEDS ORDERED: Aspirin 81 mg Enteric Coated Tablet ONE (08:20)
[2020-06-19] MEDS ORDERED: Clindamycin 150 MG CAP ONE ×3 (08:20→14:11)
[2020-06-19] MEDS ORDERED: Amlodipine 5 MG TAB ONE (08:21)
[2020-06-19] MEDS ORDERED: Folic Acid 1 MG TAB ONE (08:21)
[2020-06-19] MEDS ORDERED: Famotidine 20 MG TAB ONE (08:21)
[2020-06-19] MEDS ORDERED: Magnesium Oxide 400 MG TAB PO ONE (08:22)
[2020-06-19] MEDS ORDERED: Multivitamin W/ Minerals 1 TAB ONE (08:22)
[2020-06-19] MEDS ORDERED: Thiamine 100 MG TAB ONE (08:22)
[2020-06-19] MEDS: Folic Acid 1 MG TAB PO SCH (08:53)
[2020-06-19] MEDS: Thiamine 100 MG TAB PO SCH (08:53)
[2020-06-19] MEDS: Famotidine 20 MG TAB PO SCH (08:53)
[2020-06-19] MEDS: Aspirin 81 mg Enteric Coated Tablet PO SCH (08:53)
[2020-06-19] MEDS: Magnesium Oxide 400 MG TAB PO SCH (08:53)
[2020-06-19] MEDS: Amlodipine 5 MG TAB PO SCH (08:53)
[2020-06-19] MEDS: Multivitamin W/ Minerals 1 TAB PO SCH (08:53)
[2020-06-19] MEDS: Clindamycin 150 MG CAP PO SCH ×2 (08:53→14:12)
[2020-06-19] MEDS: Rifampin 300 MG CAP PO SCH (09:03)
--- NOTE | 2020-06-19 13:33 | PDOC.HOSPP ---
- Subjective Encounter Date: 06/19/20 Encounter Time: 13:29 Subjective: Patient denied any complaints today. He went back to the OR yesterday for further debridement Will defer to the primary attending about further care. It appears he is doing well and maybe leaving the hospital soon. - Objective Vital Signs & Weight: Weight Admit Weight 206 lb 2 oz Weight 206 lb 2 oz I&O: 06/18/20 06/19/20 06/20/20 06:59 06:59 06:59 Intake Total 1600 2100 Balance 1600 2100 Result Diagrams: 06/17/20 04:41 06/17/20 06:29 Additional Labs: Accuchecks 06/18/20 15:50 POC Glucose 227 H Radiology Reviewed by me: Yes EKG Reviewed by me: Yes Hospitalist ROS - Review of Systems Skin: reports: rash - Medication Medications: Active Medications Generic Name Dose Route Start Last Admin Trade Name Freq PRN Reason Stop Dose Admin Hydrocodone Bitart/Acetaminophen 2 tab 06/14/20 18:03 06/18/20 20:33 Hydrocodone/Acetaminophen 5/325 Mg Tablet PO 2 tab Q4H PRN Administration Severe Pain (7-10) Amlodipine Besylate 5 mg 06/15/20 09:00 06/18/20 08:34 Amlodipine 5 Mg Tab PO 5 mg DAILY [facility]IGUELANGEL Administration Aspirin 81 mg 06/14/20 21:00 06/18/20 20:33 Aspirin 81 Mg Enteric Coated Tablet PO 81 mg BID [facility]IGUELANGEL Administration Clindamycin HCl 300 mg 06/18/20 21:00 06/18/20 20:33 Clindamycin 150 Mg Cap PO 300 mg TID MIGUELANGEL Administration Famotidine 20 mg 06/15/20 09:00 06/18/20 20:33 Famotidine 20 Mg Tab PO 20 mg BID MIGUELANGEL Administration Folic Acid 1 mg 06/18/20 09:00 06/18/20 08:34 Folic Acid 1 Mg Tab PO 1 mg DAILY [facility] Administration Hydralazine HCl 10 mg 06/14/20 22:08 06/17/20 04:28 Hydralazine 20 Mg/Ml Vial SLOW IVP 10 mg Q6H PRN Administration SBP GREATER THAN 160 Sodium Chloride 1,000 mls @ 100 mls/hr 06/14/20 21:30 06/19/20 00:47 Normal Saline 0.9% IV Not Given .Q10H [facility] Insulin Human Lispro 0 units 06/14/20 22:07 06/18/20 17:22 Humalog 300 Units/3 Ml Vial SC 4 unit .MODERATE SLIDING SC PRN Administration Moderate Correctional Scale Iron/Minerals/Multivitamins 1 tab 06/18/20 09:00 06/18/20 08:34 Multivitamin W/ Minerals 1 Tab PO 1 tab DAILY [facility] Administration Ketorolac Tromethamine 30 mg 06/14/20 18:06 06/17/20 11:15 Ketorolac Tromethamine 30 Mg/Ml Vial IVP 06/19/20 18:07 30 mg Q6H PRN Administration Pain Lorazepam 1 mg 06/14/20 18:10 06/17/20 23:03 Lorazepam 2 Mg/Ml Vial SLOW IVP 1 mg Q6H PRN Administration Anxiety/Agitation Magnesium Oxide 400 mg 06/18/20 09:00 06/18/20 08:34 Magnesium Oxide 400 Mg Tab PO 400 mg DAILY [facility] Administration Morphine Sulfate 4 mg 06/14/20 18:03 06/16/20 08:46 Morphine 4 Mg/Ml Vial SLOW IVP 4 mg Q2H PRN Administration Severe Pain (7-10) Nicotine 14 mg 06/17/20 23:59 06/19/20 00:42 Nicotine 14 Mg Patch TD Not Given 2859 [facility] Rifampin 300 mg 06/18/20 22:00 06/18/20 20:34 Rifampin 300 Mg Cap PO 300 mg 1000,2200 [facility] Administration Thiamine HCl 100 mg 06/18/20 09:00 06/18/20 08:34 Thiamine 100 Mg Tab PO 100 mg DAILY [facility] Administration Hospitalist Exam Vitals: Weight Admit Weight 206 lb 2 oz Weight 206 lb 2 oz General Appearance: NAD, awake alert Eye: PERRL, anicteric sclera ENT: normocephalic atraumatic, no oropharyngeal lesions Neck: supple, symmetric, no JVD, no thyromegaly Heart: RRR, no murmur, no gallops Respiratory: CTAB, no wheezes, no rales, no ronchi, normal chest expansion Gastrointestinal: soft, non-tender, non-distended, normal bowel sounds Neurological: cranial nerve grossly intact, normal sensation to touch Psychiatric: normal affect, normal behavior, A&O x 3 Hosp A/P (1) Cellulitis and abscess of hand Code(s): L03.119 - CELLULITIS OF UNSPECIFIED PART OF LIMB; L02.519 - CUTANEOUS ABSCESS OF UNSPECIFIED HAND Status: Acute (2) Osteomyelitis Code(s): M86.9 - OSTEOMYELITIS, UNSPECIFIED Status: Acute Qualifiers: Osteomyelitis type: unspecified type Osteomyelitis location: hand Laterality: left Qualified Code(s): M86.9 - Osteomyelitis, unspecified (3) Cat bite of hand Code(s): S61.459A - OPEN BITE OF UNSPECIFIED HAND, INITIAL ENCOUNTER; W55.01XA - BITTEN BY CAT, INITIAL ENCOUNTER Status: Chronic Qualifiers: Encounter type: initial encounter Laterality: left Qualified Code(s): S61.452A - Open bite of left hand, initial encounter; W55.01XA - Bitten by cat, initial encounter (4) Diabetes type 2, uncontrolled Code(s): E11.65 - TYPE 2 DIABETES MELLITUS WITH HYPERGLYCEMIA Status: Acute Qualifiers: Glycemic state: with hyperglycemia Qualified Code(s): E11.65 - Type 2 diabetes mellitus with hyperglycemia - Plan old records reviewed/req, PT/OT We will discuss with the primary service about getting ID on board. I suspect he is going to need long-term antibiotics for this osteomyelitis. 06/18/2020. The patient is on Unasyn and vancomycin. This will be continued for now.
[2020-06-19 15:30] VITALS: BP 137/73; TEMP 97.8
--- NOTE | 2020-06-20 04:06 | PQF ---
CLINICAL DOCUMENTATION CLARIFICATION FORM: Dear : Patrick Ramirez Date / Time: 06/20/2020 Please exercise your independent, professional judgment in responding to the clarification form. Clinical indicators are provided on the bottom of this form for your review In your clinical opinion based on clinical findings below, can you please identify the etiology of Osteomyelitis if due to: Please check appropriate box(es): [ x] Cat bite [ ] DM [ ] Other diagnosis, please specify [ ] Unable to determine Physician Signature: Date/Time: For continuity of documentation, please document condition throughout progress notes and discharge summary. Thank You. To be completed by CDI/Coding staff for physician review: Present Clinical Indicators - Signs / Symptoms / Labs Results and Location in Medical Record [x] WBC 6.6, Plt count 139, Neutrophils 62.9 Laboratory 06/15 [x] Glucose 173; 159, POC Glucose 177; 196; 126; 182; 140; 268; 203 Laboratory 06/15-06/18 [x] Impression: Abscess with adjacent focal osteomyelitis Laboratory 06/16 [x] few weeks ago had cat bite on left hand H&P p1 06/14 Dr Rizo [x] L finger abscess H&P p3 06/14 Dr Rizo [x] Left ring finger metacarpophalangeal joint abscess 2/2 cat bite Operative report 06/14 Dr Meza [x] Having a more than 6-week-old cat bite absecss with bone involvement osteomyelitis grossly Operative report 06/17 Dr Meza Present Risk Factors Results and Location in Medical Record [x] 60 year-old Male H&P p1 06/14 Dr Rizo [x] HTN H&P p1 06/14 Dr Rizo [x] DM H&P p1 06/14 Dr Rizo [x] Cat Bite H&P p1 06/14 Dr Rizo [x] Smoker H&P p1 06/14 Dr Rizo Present Treatments Results and Location in Medical Record [x] IV Vancomycin 1 gm JUL 04 [x] Insulin 4 units SC JUL 04 [x] IV Clindamycin 150 mg JUL 04 [x] Wound Debridement Operative report 06/14 Dr Meza CDS/Plastics Nurse Signature: Jackie Maddy Darby Phone #: [phone] Date/Time: 06/20/20 This is a permanent part of the Medical Record [facility]
--- NOTE | 2020-06-21 15:11 | EKG ---
Test Reason : Blood Pressure : / mmHG Vent. Rate : 086 BPM Atrial Rate : 086 BPM P-R Int : 154 ms QRS Dur : 100 ms QT Int : 410 ms P-R-T Axes : 063 -18 045 degrees QTc Int : 490 ms Normal sinus rhythm Prolonged QT Abnormal ECG No previous ECGs available Confirmed by VAN BALDERRAMA (2) on 06/21/2020 3:11:20 PM Referred By: Confirmed By:VAN BALDERRAMA
== END 2020-06-19 18:09 | disposition home or self-care (01) | DRG 513 ==
LOC: SDC 18:00 → SURG A 18:03
PROVIDERS: ADMIT Orthopaedic Surgery Hand Surgery; ATTEND Hospitalist
PROC: 0PBV0ZZ Excision of Left Finger Phalanx, Open Approach (ICD-10-PCS; principal; 2020-06-14)
PROC: 0LQ80ZZ Repair Left Hand Tendon, Open Approach (ICD-10-PCS; 2020-06-17)
PROC: 0PBQ0ZZ Excision of Left Metacarpal, Open Approach (ICD-10-PCS; 2020-06-17)
DX: M86.8X4 Other osteomyelitis, hand (principal); S56.422A Laceration of extensor muscle, fascia and tendon of left index finger at forearm level, initial encounter; S56.426A Laceration of extensor muscle, fascia and tendon of left ring finger at forearm level, initial encounter; L02.512 Cutaneous abscess of left hand; Z91.19 Patient's noncompliance with other medical treatment and regimen; Z20.822 Contact with and (suspected) exposure to COVID-19; I10 Essential (primary) hypertension; F17.210 Nicotine dependence, cigarettes, uncomplicated; E87.6 Hypokalemia; L03.012 Cellulitis of left finger; E11.65 Type 2 diabetes mellitus with hyperglycemia; S61.452A Open bite of left hand, initial encounter; W55.01XA Bitten by cat, initial encounter
CPT/HCPCS: 36415; 36416; 80048; 80076; 80202; 83735; 85025; 85652; 87070; 87076; 87205; 88307; 88311; 93005; 93010; C1713; J0295; J0360; J0702; J1100; J1170; J1815; J1885; J2060; J2250; J2270; J2405; J2704; J3010; J3260; J3370; J3411; J3475; J3490; J7042; J7050; S0020; S0028